=== PATIENT | female | born 1950 ===

== ENCOUNTER 2021-06-09 11:45 | Outpatient (CLI) | payer OTHER | END 2021-06-09 11:50 | disposition home or self-care (01) | LOC: PPH VACUNA 11:45 | PROVIDERS: ATTEND Emergency Medicine Pediatric Emergency Medicine | DX: Z23 Encounter for immunization (principal) ==

== ENCOUNTER 2023-04-15 11:00 | Outpatient (CLI) | payer OTHER | END 2023-04-15 11:50 | disposition home or self-care (01) | LOC: SONOGRAMA 11:00 | PROVIDERS: ATTEND Orthopaedic Surgery | DX: M25.511 Pain in right shoulder (principal) ==

== ENCOUNTER 2023-04-28 07:18 | Outpatient (CLI) | payer OTHER | END 2023-04-28 07:30 | disposition home or self-care (01) | LOC: SONOGRAMA 07:18 | DX: N85.00 Endometrial hyperplasia, unspecified (principal) ==